=== PATIENT | male | born 1970 | race Caucasian/White ===

== ENCOUNTER → 2022-07-17 | Outpatient (CLI) | payer OTHER, SELFPAY ==
--- NOTE | 2022-07-17 16:00 | TOBX_PTH ---
PATIENT: AAMIR LEON LOC: [facility] U#:[id number] AGE/SX: 51/M ROOM: RE07/17/[address]: Dr. Vinod Jordan MD : 1970 BED: DIS: 07/17/2022 SPEC #: [id number] RECD: 07/18/22 12:18 STATUS: RASTA RUBIOMata #: [id number] LESLEE: 07/17/22 16:[address]: Vinod Jordan DEPT: SURGICAL PATHOLOGY RECD BY: Linette Stoddard Tissues: Tongue, NOS Procedures: Surgery Specimen Level IV HEADER OPERATION: Left tongue biopsy PRE-OP DIAGNOSIS: Left tongue mass TISSUE SUBMITTED: Left tongue MICROSCOPIC DIAGNOSIS Left tongue mass, biopsy: Consistent with invasive well differentiated squamous cell carcinoma. AM:nadir 07/19/2022 COMMENT Case has been reviewed in consultation with Dr. Blanchard who concurs with the above diagnosis. IDC:SJ MICROSCOPIC DESCRIPTION Slides are reviewed. GROSS DESCRIPTION Received in fixative is one container labeled with the patient's name and designated left tongue biopsy. The specimen consists of an irregular fragment of mitchell tissue measuring 0.6 x 0.2 x 0.1 cm. The specimen is totally submitted in one cassette. / AM:nadir 07/18/2022 TC:0 CPT: 46514
== END | disposition home or self-care (01) ==
PROVIDERS: Visit Provider Otolaryngology
DX: D37.02 Neoplasm of uncertain behavior of tongue (principal)
CPT/HCPCS: 88305